=== PATIENT | male | born 1980 | race Caucasian/White ===

== ENCOUNTER 2024-05-01 21:00 | Emergency (ER) | payer BC ==
[~2024-05-01] VITALS: Ht 177.8 cm; Wt 81.6 kg
[2024-05-01 21:38] VITALS: O2SAT 96
[2024-05-01] MEDS ORDERED: GABA300C PO (21:46)
[2024-05-01] MEDS ORDERED: BUPR1FIL7 SL (21:46)
== END 2024-05-02 02:00 | disposition left against medical advice (07) ==
LOC: ER 21:50
DX: R06.02 Shortness of breath (principal); F12.90 Cannabis use, unspecified, uncomplicated; F17.210 Nicotine dependence, cigarettes, uncomplicated; Z88.0 Allergy status to penicillin; Z91.041 Radiographic dye allergy status
CPT/HCPCS: A4606; A4663